=== PATIENT | female | born 1940 | race Caucasian/White ===

== ENCOUNTER → 2016-09-10 | Outpatient (CLI) | payer OTHER ==
[~2016-09-10] MED LIST: ASPIR 8181 MG PO; BUSPAR 5MG TABLE5 MG PO; CALCIUM + VITA1 EACH PO; HYDRALAZINE HCL10 MG PO; LIORESAL TAB 1010 MG PO; LIPITOR TAB 2020 MG PO; LOPRESSOR 50 MG50 MG PO; LYRICA50 MG PO; NORVASC 5 MG TAB5 MG PO; PROTONIX 40 MG40 M1 PO; PROVENTIL HFA 61 INH INH; TAMBOCOR 100 M100 MG PO; XARELTO 15 MG T15 MG PO; ZYRTEC10 MG PO
== END ==
LOC: EMI 09-04 10:15
DX: M51.36 Other intervertebral disc degeneration, lumbar region (principal); B37.0 Candidal stomatitis; D75.1 Secondary polycythemia; E78.2 Mixed hyperlipidemia; F41.1 Generalized anxiety disorder; F44.89 Other dissociative and conversion disorders; G25.0 Essential tremor; G25.2 Other specified forms of tremor; G47.09 Other insomnia; G60.3 Idiopathic progressive neuropathy; H00.14 Chalazion left upper eyelid; I10 Essential (primary) hypertension; I48.2 Chronic atrial fibrillation; J01.00 Acute maxillary sinusitis, unspecified; J20.9 Acute bronchitis, unspecified; J44.9 Chronic obstructive pulmonary disease, unspecified; K25.0 Acute gastric ulcer with hemorrhage; K25.4 Chronic or unspecified gastric ulcer with hemorrhage; K92.2 Gastrointestinal hemorrhage, unspecified; N39.0 Urinary tract infection, site not specified; R44.1 Visual hallucinations; R60.0 Localized edema; T78.49XS Other allergy, sequela
CPT/HCPCS: 72148